=== PATIENT | female | born 1950 | race Caucasian/White ===

== ENCOUNTER 2019-03-12 08:43 | Day surgery (SDC) | payer MEDICARE ==
[~2019-03-12 08:43] MED LIST: AMLODIPINE BESY10 MG PO; BUPROPION100 MG PO; BUSPIRONE5 MG PO; CRANBERRY125 MG PO; DUTOPROL1 TA1 PO; FLAX OIL PO; LEVOTHYROXIN50 MC1 PO; LEVOTHYROXIN75 MCG PO; LIPITOR20 M1 PO; LISINOP/HCTZ1 TA1 PO; LISINOP/HCTZ1 TA2 PO; LOSARTAN POTASS50 MG PO; MEVACOR20 M1 PO; NORCO1 TA1 PO; OMEPRAZOLE20 MG PO; OXYBUTYNIN5 M1 PO; PAROXETINE20 MG PO; PREMARIN0.625 MG PO; STOOL SOFTENER100 MG PO; TOPROL XL PO; TOPROL XL100 MG PO; WELLBUTRIN SR150 M1 PO; XALATAN0.005 % OP
[2019-03-12 12:14] VITALS: BP 151/90
== END 2019-03-12 12:28 | disposition home or self-care (01) ==
LOC: ENDO 08:43 → ORM 11:30 → ENDO 11:30
PROVIDERS: ATTEND Surgery
PROC: 0DJD8ZZ Inspection of Lower Intestinal Tract, Via Natural or Artificial Opening Endoscopic (ICD-10-PCS; principal; 2019-03-12)
DX: Z12.11 Encounter for screening for malignant neoplasm of colon (principal); I10 Essential (primary) hypertension; Z86.010 Personal history of colon polyps

== ENCOUNTER 2020-05-08 01:17 | Emergency (ER) | payer MEDICARE ==
[~2020-05-08] VITALS: Ht 160 cm; Wt 84.4 kg
[~2020-05-08 01:17] MED LIST changes: +CALTRAT1 PO; +GABAPENTIN100 MG PO; +LATANOPROST0.005 % OP; +MULTIVITAMIN1 TAB PO; +VENTOLIN HF1 IN
[2020-05-08 02:13] LABS: URINE BILIRUBIN - DIPSTICK NEGATIVE (NEGATIVE); URINE BLOOD DIPSTICK NEGATIVE (NEGATIVE); URINE COLOR YELLOW; URINE GLUCOSE - DIPSTICK 500 mg/dL (NEGATIVE); URINE KETONE NEGATIVE (NEGATIVE); URINE LEUK ESTERASE NEGATIVE (NEGATIVE); URINE NITRITE - DIPSTICK NEGATIVE (Negative); URINE PROTEIN - DIPSTICK NEGATIVE (NEG-TRACE); URINE UROBILINOGEN - DIPSTICK 0.2 E.U./dL (0.2)
[2020-05-08 02:14] LABS: HEMOGLOBIN 13.4 g/dl (12.0-16.0); IMMATURE GRANULOCYTES 0.3 % (0.0-5.0); MEAN CORPUSCULAR HGB 28.5 pG CALC (26.0-32.0); MEAN CORPUSCULAR HGB CONC 32.7 g/dL CAL (32.0-36.0); NEUT# 10.06 thou/uL (2.00-7.15); RED BLOOD COUNT 4.71 mill/uL (4.20-5.60); RED CELL DISTRI WIDTH 13.7 % (11.5-15.5)
[2020-05-08 02:43] LABS: ALBUMIN 4.9 g/dL (3.2-5.0); ALKALINE PHOSPHATASE 59 u/l (38-126); AMYLASE 89 u/l (30-110); ANION GAP 14 (6-22 (CALC)); BILIRUBIN, TOTAL 0.7 mg/dL (0.0-1.4); BUN 24 mg/dL (8-23); BUN/CREATININE RATIO 33 (12-20 (CALC)); CARBON DIOXIDE 28 mmol/l (22-30); CHLORIDE 100 mmol/l (95-108); CREATININE 0.7 mg/dL (0.5-1.0); GFR > 60 ML/MIN (>=60 (CALC)); GFR FOR AFR.AMER. > 60 ML/MIN (>=60 (CALC)); LIPASE 579 u/l (23-300); POTASSIUM 3.5 mmol/l (3.5-5.1); SGOT/AST 89 u/l (9-36); SODIUM 138 mmol/l (137-146); TOTAL PROTEIN 8.4 g/dL (6.3-8.2)
[2020-05-08 05:25] VITALS: BP 142/64
== END 2020-05-08 05:25 | disposition home or self-care (01) ==
LOC: ED 01:17
PROVIDERS: Family Medicine
DX: K85.10 Biliary acute pancreatitis without necrosis or infection (principal); K80.20 Calculus of gallbladder without cholecystitis without obstruction; I10 Essential (primary) hypertension; F41.9 Anxiety disorder, unspecified; K76.89 Other specified diseases of liver
CPT/HCPCS: Q9967

== ENCOUNTER 2022-02-20 12:11 | Emergency (ER) | payer MEDICARE ==
[~2022-02-20] VITALS: Ht 160 cm; Wt 81.0 kg
[2022-02-20 12:26] VITALS: BP 148/71
[2022-02-20] MEDS ORDERED: HYDROXYZINE HCL10 MG PO (12:37)
[2022-02-20 13:13] LABS: HEMATOCRIT 41.4 % (37.0-47.0); HEMOGLOBIN 13.9 g/dl (12.0-16.0); IMMATURE GRANULOCYTES 0.2 % (0.0-5.0); MEAN CELL VOLUME 86.1 fL CALC (80.0-100.0); MEAN CORPUSCULAR HGB 28.9 pG CALC (26.0-32.0); MEAN CORPUSCULAR HGB CONC 33.6 g/dL CAL (32.0-36.0); NEUT# 3.6 thou/uL (2.00-7.15); RED BLOOD COUNT 4.81 mill/uL (4.20-5.60); RED CELL DISTRI WIDTH 13.4 % (11.5-15.5)
[2022-02-20 13:49] LABS: ALBUMIN 4.7 g/dL (3.2-5.0); ALKALINE PHOSPHATASE 59 u/l (38-126); ANION GAP 15 (6-22 (CALC)); BILIRUBIN, TOTAL 0.4 mg/dL (0.0-1.4); BUN 14 mg/dL (8-23); BUN/CREATININE RATIO 19 (12-20 (CALC)); CARBON DIOXIDE 28 mmol/l (22-30); CHLORIDE 100 mmol/l (95-108); CREATININE 0.8 mg/dL (0.5-1.0); GFR FOR AFR.AMER. > 60 ML/MIN (>=60 (CALC)); GFR OTHER RACES > 60 ML/MIN (>=60 (CALC)); POTASSIUM 3.7 mmol/l (3.5-5.1); SGOT/AST 31 u/l (9-36); SODIUM 139 mmol/l (137-146); TOTAL PROTEIN 7.7 g/dL (6.3-8.2)
[2022-02-20 14:55] VITALS: BP 158/80
[2022-02-20 15:01] VITALS: BP 165/68
[2022-02-20 16:01] VITALS: BP 170/74
[2022-02-20 16:34] VITALS: BP 170/74
== END 2022-02-20 16:45 | disposition home or self-care (01) ==
LOC: ED 12:11
PROVIDERS: Family Medicine
DX: R55 Syncope and collapse (principal); I10 Essential (primary) hypertension; F41.9 Anxiety disorder, unspecified